=== PATIENT | male | born 1935 | race Caucasian/White ===

== ENCOUNTER → 2017-07-05 | Outpatient (CLI) | payer OTHER ==
[~2017-07-05] MED LIST: ASPI81EC; Antivert25 MG PO; Colace100 MG PO; HYDACE5 PO; OMEP20ER; PRAV20 PO; Percocet 5-3251 EACH PO; Zofran Odt4 MG SL; Zofran4 MG PO
== END ==
LOC: LAB SHORT 11:44 → PLD 11:44
DX: D48.5 Neoplasm of uncertain behavior of skin (principal)
CPT/HCPCS: 88305

== ENCOUNTER 2017-12-24 11:49 | Emergency (ER) | payer OTHER ==
[~2017-12-24] VITALS: Ht 180.3 cm; Wt 125.2 kg
[~2017-12-24 11:49] MED LIST changes: -Colace100 MG PO; -Percocet 5-3251 EACH PO
[2017-12-24] MEDS ORDERED: Percocet 5-3251 EACH PO (16:31)
[2017-12-24] MEDS ORDERED: Colace100 MG PO (16:31)
== END 2017-12-24 17:04 | disposition home or self-care (01) ==
LOC: ER 11:49
DX: S51.011A Laceration without foreign body of right elbow, initial encounter (principal); S00.03XA Contusion of scalp, initial encounter; Z79.899 Other long term (current) drug therapy; Z79.82 Long term (current) use of aspirin; K21.9 Gastro-esophageal reflux disease without esophagitis; W01.0XXA Fall on same level from slipping, tripping and stumbling without subsequent striking against object, initial encounter
CPT/HCPCS: 70450; 73030; 73502; 73552; 90714; 96372; 99284-25

== ENCOUNTER 2020-03-09 21:38 | Inpatient (IN) | payer MEDICARE, OTHER ==
[~2020-03-09] VITALS: Ht 180.3 cm; Wt 72.6 kg
[~2020-03-09 21:38] MED LIST changes: +Colace100 MG PO; +Percocet 5-3251 EACH PO
[2020-03-09] MEDS ORDERED: MINO50 (21:50)
[2020-03-09 22:05] LABS: BASOPHILS ABSOLUTE AUTO 0.22 K/mm3 (0.00-0.23); BASOPHILS PERCENT AUTO 2 % (0-2); EOSINOPHILS ABSOLUTE AUTO 0.31 K/mm3 (0.00-0.68); EOSINOPHILS PERCENT AUTO 3 % (0-6); Hematocrit 45.5 % (37.0-53.0); Hemoglobin 13.9 g/dL (13.5-17.5); IMMATURE GRAN ABSOLUTE AUTO 0.04 K/mm3 (0.00-0.10); IMMATURE GRAN PERCENT AUTO 0 % (0-1); LYMPHOCYTES ABSOLUTE AUTO 2.05 K/mm3 (0.84-5.20); LYMPHOCYTES PERCENT AUTO 21 % (21-46); MONOCYTES ABSOLUTE AUTO 1.08 K/mm3 (0.16-1.47); MONOCYTES PERCENT AUTO 11 % (4-13); Mean Corpuscular HGB 27.9 pg (26.0-34.0); Mean Corpuscular HGB Conc 30.5 g/dL (31.5-36.5); Mean Corpuscular Volume 91 fL (80-100); Mean Platelet Volume 11.8 fL (9.1-12.4); NEUTROPHILS ABSOLUTE AUTO 5.86 K/mm3 (1.96-9.15); NEUTROPHILS PERCENT AUTO 61 % (41-73); Platelet Count 220 K/mm3 (150-400); RDW Coefficient Variation 13.7 % (11.7-14.2); RDW Standard Deviation 46.3 fL (35.1-46.3); Red Blood Cell Count 4.99 M/mm3 (4.30-5.90); White Blood Cell Count 9.56 K/mm3 (4.00-11.30)
[2020-03-09 22:20] LABS: Alanine Aminotransfer (ALT/SGP 15 U/L (12-78); Albumin, Blood 3.2 g/dL (3.4-5.0); Albumin/Globulin Ratio 0.9 (0.8-1.8); Alk Phos 121 U/L (50-136); Anion Gap 5 mmol/L (6-16); Aspartate Aminotrans (AST/SGOT 16 U/L (12-37); Bilirubin, Total 0.5 mg/dL (0.1-1.0); Blood Urea Nitrogen 59 mg/dL (8-24); Bun/Creatinine Ratio 27.6 (12.0-20.0); CO2, Blood 25 mmol/L (21-32); Calcium, Blood 8.4 mg/dL (8.5-10.1); Chloride, Blood 108 mmol/L (98-108); Creatinine, Blood 2.14 mg/dL (0.60-1.20); Globulin, Blood 3.4 g/dL (2.2-4.0); Glomerular Filtration Rate 31 (60-); Glucose, Blood 133 mg/dL (70-99); Potassium, Blood 5.4 mmol/L (3.5-5.5); Sodium, Blood 138 mmol/L (136-145); Total Protein, Blood 6.6 g/dL (6.4-8.2); Troponin I <0.015 ng/mL (0.000-0.040)
[2020-03-10 02:22] LABS: Source, Urine Clean Catch
[2020-03-10 02:28] LABS: Bilirubin, Urine Neg (Neg); Blood, Urine 1+ (Neg); Glucose Qualitative, Urine Neg (Neg); Ketones, Urine Neg (Neg); Leukocyte Esterase, Urine Neg (Neg); Nitrite, Urine Neg (Neg); Protein, Urine 2+ (Neg); Specific Gravity, Urine 1.015 (1.003-1.022); Urobilinogen, Urine NORM (Normal)
[2020-03-10 02:29] LABS: Appearance, Urine Clear (Clear); Color, Urine Yellow (P-Yellow)
[2020-03-10 02:34] LABS: Bacteria Few /hpf; Red Blood Cells, Urine 0-2 /hpf (0-2); White Blood Cells, Urine 0-2 /hpf (0-5)
[2020-03-10 02:35] LABS: Squamous Epithelial Cells Few /hpf (Few)
[2020-03-10 04:49] LABS: Mean Corpuscular HGB 27.8 pg (26.0-34.0); Mean Corpuscular HGB Conc 30.8 g/dL (31.5-36.5); Mean Corpuscular Volume 91 fL (80-100); Mean Platelet Volume 11.7 fL (9.1-12.4); Platelet Count 192 K/mm3 (150-400); RDW Coefficient Variation 13.4 % (11.7-14.2); RDW Standard Deviation 45.2 fL (35.1-46.3); Red Blood Cell Count 4.31 M/mm3 (4.30-5.90)
[2020-03-10 05:24] LABS: Bun/Creatinine Ratio 28.9 (12.0-20.0); Calcium, Blood 7.7 mg/dL (8.5-10.1); Creatinine, Blood 1.97 mg/dL (0.60-1.20); Free Thyroxine 0.87 ng/dL (0.70-1.60); Potassium, Blood 4.9 mmol/L (3.5-5.5); Thyroid Stimulating Hormone 3.23 uIU/mL (0.360-4.800)
--- NOTE | 2020-03-10 05:52 | NUR ---
0130 Pt was received via stretcher to room 343. Pt is alert oriented and cooperative. Admission was completed. Pt given snack of 1/2 sandwich. Pt declines needing to void. Paul feet are cool. Pt has skin condition on face scabs and dry skin that he takes minocycline for. Pt with lights off resting.
--- NOTE | 2020-03-10 06:03 | NUR ---
Rn summary: Patient has been able to rest. He did void dk yellow urine, UA was sent to lab. Pt needs assist to turn in bed. He is here due to increased weakness. Pt has not been OOB for us. Pt is receiving IV fluids. Call light is in reach. Will continue to monitor.
--- NOTE | 2020-03-10 11:58 | NUR ---
PT INCONT XLRG SOFT DRK BRN STOOL. STATE DIZZINESS/LIGHTHEADEDNESS WHEN ATTEMPT TO GET OOB. DR MOREL NOTIFIED, ORDER ORTHO VS. LYING 87/50, SITTING UP 77/46. DR MOREL ORDER TO INCREASE NS RATE TO 150 ML/HR. WILL MX.
[2020-03-10 14:10] LABS: Hematocrit 32.1 % (37.0-53.0); Hemoglobin 9.7 g/dL (13.5-17.5)
--- NOTE | 2020-03-10 15:53 | NUR ---
PT CONTINUES INCONT OF LOOSE DRK STOOLS, LAST REDDIOSH/PURPLE, APPARENT BLOOD. DR MOREL NOTIFIED, ORDER H&H, LOWER THAN THIS AM @ 9.7/32.1, DR MOREL NOTIFIED. PT STATE CONTINUING STOMACH UPSET, GAVE PRILOSEC & TUMS THIS AM W/O RELIEF, DR MOREL ORDER MAALOX XTRA STRENGTH, PT STATE RELIEF @ THIS TIME.
--- NOTE | 2020-03-10 17:02 | NUR ---
BP 82/67, HR 86. PT STATE NO DIZZINESS/LIGHTHEADEDNESS @ REST. DR MOREL NOTIFIED ORDER NS 500ML BOLUS & STAT H&H. GROUNDS PERSON NOTIFIED.
--- NOTE | 2020-03-10 17:33 | NUR ---
DR MOREL UP TO SEE PT/FAMILY MEMBER, REVIEW RESULTS OF LABS, VS, TX'S. ORDER GI CONSULT w DR PHELPS, TRANSFER TO PCU, 1 UNIT PRBC. WIND TUNNEL MECHANIC NOTIFY SUPVR & PCU. PT IS PLEASANT/COOPERATIVE, STATE NO ABD PAIN @ THIS TIME. WIND TUNNEL MECHANIC STATE PT WILL TRANSFER TO PCU 13, WILL CALL TO GIVE REPORT. PT, DAUGHTER NOTIFIED.
[2020-03-10 17:39] LABS: Hematocrit 29.1 % (37.0-53.0); Hemoglobin 8.9 g/dL (13.5-17.5)
--- NOTE | 2020-03-10 18:13 | NUR ---
REPORT TO CHIEF METER READERKAREN BUCHANAN. DAUGHTER WILL NOTIFY FAMILY OF CHANGES/TRANSFER.
--- NOTE | 2020-03-10 20:20 | NUR ---
PT UPDATE GI PROVBIDER TO ROOM TO ASESS PT. PT REMAINS HYPOTENSIVE, 500ML BOLUS STARTED PER GI. BLOOD SLIP SENT TO START 1 UNIT PRBC'S. NEW IV ACCESS OBTAINED. PER GI START ON PROTONIX GTT. PT TO BR TRANSFERED TO ICU STATUS. BEDSIDE REPORT TO BE GIVEN IN ICU TO CANDICE JONES ONCE BLOOD TRANSFUSION HAS STARTED.
[2020-03-10 21:23] LABS: Stool Occult Blood Guaiac 1 Pos (Neg)
--- NOTE | 2020-03-10 21:31 | NUR ---
PT UP TO ICU 8 FROM PCU 13. PT AWAKE. LUNG SOUNDS CLEAR. SPO2 >90%. IN SR. SBP 120S, HR 70-80S. HYPOACTIVE BT. RECEIVING BOLUS OF 500MLS AND A UNIT OF BLOOD. SBPS PRIOR TO ICU ADMISSION HAD BEEN SOFT IN THE 70-80S. RECEIVED REPORT FROM KAREN CARIAS AND DR PHELPS. PLAN IS TO SCOPE PT TO FIND BLEED. WILL CONTINUE TO MONITOR
--- NOTE | 2020-03-10 22:25 | NUR ---
03/10/20 2225 Sonja Larson See Anesthesia record. CASE IN ICU #8.
--- NOTE | 2020-03-10 22:27 | NUR ---
PT BEING PREPPED FOR SCOPE BY SURG TEAM
[2020-03-10 23:33] LABS: Hematocrit 29.5 % (37.0-53.0); Hemoglobin 9.2 g/dL (13.5-17.5)
[2020-03-11 06:02] LABS: Hematocrit 26.4 % (37.0-53.0); Hemoglobin 8.3 g/dL (13.5-17.5)
[2020-03-11 06:17] LABS: Bun/Creatinine Ratio 36.2 (12.0-20.0); Calcium, Blood 7.5 mg/dL (8.5-10.1); Creatinine, Blood 2.1 mg/dL (0.60-1.20); Potassium, Blood 5.6 mmol/L (3.5-5.5)
--- NOTE | 2020-03-11 06:38 | NUR ---
SHIFT SUMMARY: EGD DONE. DUODENAL ULCER FOUND AND CAUTERIZED. IS ON RA. SBP IN THE 90S. HAD ONE BLACK/MAROON STOOL EARLIER IN SHIFT. NOTHING SINCE. VOIDS IN URINAL ON OWN. ON PROTONIX GTT. HGB THIS AM 8.3. NO S/S OF BLEEDING AT THIS TIME. WILL PASS REPORT TO ONCOMING SHIFT.
--- NOTE | 2020-03-11 07:56 | NUR ---
SPOKE WITH DR. MOREL; UPDATED ON PATIENT STATUS. INFORMED THAT PATIENT WEARS BIPAP AT HOME AT HS. INFORMED THAT BPS SOFT DURING THE NIGHT WITH SBP 80S TO 90S. INFORMED THAT PATIENT HAD NO SIGNS OF ACTIVE BLEEDING ON ACID POLYMERIZATION OPERATOR PER ACID POLYMERIZATION OPERATOR RN. INFORMED THAT PATIENT NPO AT THIS TIME. ORDERS RECEIVED.
--- NOTE | 2020-03-11 08:20 | NUR ---
INITIAL ASSESSMENT PATIENT RESTING QUIETLY IN BED, WATCHING TV, UPON ENTERING ROOM. PATIENT ALERT AND ORIENTED X 4, AFEBRILE. PATIENT SLOW TO RESPOND. PATIENT HAS CHRONIC RIGHT SIDED WEAKNESS. HX OF R ROTATOR CUFF SURGERY PER DAUGHTER. R HAND SLIGHTLY CONTRACTED. PATIENT DENIES PAIN. PATIENT SATTING 90% AND GREATER ON RA. LUNGS CLEAR THROUGHOUT. PATIENT WEARS BIPAP AT HOME AT HS. PATIENT IN SR WITH PVCS. HR 70S TO 80S. SBP LOW 100S. RADIAL PULSES AND BILAT FOOT PULSES FAINT IN STRENGTH. TRACE EDEMA NOTED TO ANKLES AND FEET. SCDS IN PLACE. ABDOMEN MILDLY DISTENDED, SOFT, WITH HYPERACTIVE BS NOTED. NO SIGNS OF ACTIVE BLEEDING NOTED. WNL. PATIENT USES URINAL INDEPENDENTLY. PATIENT HAS SCABS NOTED ON FACE AND UPPER TORSO. SCATTERED BRUISES NOTED. SKIN PALE/ COOL/ DRY. PROTONIX INFUSING AT 10 MLS/ HOUR, LR INFUSING AT 125 MLS/ HOUR, NS TKO. BED LOW, CALL LIGHT IN REACH. WILL CONTINUE TO MONITOR PATIENT FREQUENTLY THROUGHOUT SHIFT.
--- NOTE | 2020-03-11 11:40 | NUR ---
SPOKE WITH DR. PHELPS AND ALSO STATED OKAY TO PLACE ON CLEAR LIQUID DIET AND ADVANCE TOLERATED.
--- NOTE | 2020-03-11 12:00 | NUR ---
PATIENT EATING LUNCH IN BED. PATIENT AFEBRILE. PATIENT HAS NO COMPLAINTS OF PAIN. PATIENT REMAINS SATTING 90% AND GREATER ON RA. PATIENT HR 60S TO 70S. SBP 90S TO 1-TEENS. SBP DECREASED TO 70S WHEN PATIENT UP TO CHAIR WITH PHYSICAL THERAPY. PATIENT FELT LIGHT HEADED. PATIENT REMAINS VERY WEAK. NO OTHER ACUTE CHANGES TO NOTE ON AT THIS TIME. WILL CONTINUE TO MONITOR.
[2020-03-11 13:27] LABS: Hematocrit 25.6 % (37.0-53.0); Hemoglobin 8.2 g/dL (13.5-17.5)
[2020-03-11 14:12] LABS: Bun/Creatinine Ratio 38.4 (12.0-20.0); Calcium, Blood 7.6 mg/dL (8.5-10.1); Creatinine, Blood 1.9 mg/dL (0.60-1.20); Potassium, Blood 4.8 mmol/L (3.5-5.5)
--- NOTE | 2020-03-11 16:00 | NUR ---
PATIENT REMAINS AFEBRILE. NO COMPLAINTS OF PAIN. VSS. NO ACUTE CHANGES TO NOTE ON AT THIS TIME. WILL CONTINUE TO MONITOR.
--- NOTE | 2020-03-11 19:38 | NUR ---
SHIFT SUMMARY PATIENT REMAINED ALERT AND ORIENTED X 4, AFEBRILE. PATIENT COMPLAINED OF HEART BURN TOWARD END OF SHIFT AND WAS GIVEN PRN MAALOX AND TUMS. PATIENT WEAK AND DIZZY WHEN PHYSICAL THERAPY WORKED WITH AND GOT TO CHAIR; SBP DECREASED DOWN TO 70S; PATIENT HAD TO LIE BACK IN BED FOR SEVERAL MINUTES BEFORE FEELING BETTER. PATIENT REMAINED SATTING 90% AND GREATER ON RA. PATIENT REMAINED IN ST WITH PVCS. HR 60S TO 90S. SBP MOSTLY 90S TO 1-TEENS. NO BM THIS SHIFT. PATIENT INCREASED TO SOFT/RENAL DIET THIS SHIFT; CONTINUE TO ADVANCE TOLERATED. PATIENT VOIDED 900 MLS OF URINE INTO BEDSIDE URINAL. NO CHANGE TO SKIN. PATIENT SHIFTING OWN HIPS IN BED. PROTONIX INFUSING AT 10 MLS/ HOUR, LR AT 125 MLS/ HOUR. BED LOW, CALL LIGHT IN REACH. REPORT HAS BEEN GIVEN TO ONCOMING FURNACE HAND NURSE.
--- NOTE | 2020-03-11 22:33 | NUR ---
UPDATE: PT HAVING EMESIS 300ML GREEN IN COLOR. PT HAD NEHEMIAS COLORED STOOL, WITH CLOTS NOTED. CHARGE NURSE SAPPHIRE CALLED , WHO IS GOING TO CONSULT SAUL HUFF ON THE CASE. ORDERS TO CHANGE PT TO ICU STATUS. STAT ORDER FOR H&H IN PLACE. THIS NURSE WILL BE TAKING OVER CARE OF SALVATORE.
[2020-03-11 22:56] LABS: Hematocrit 26.8 % (37.0-53.0); Hemoglobin 8.4 g/dL (13.5-17.5)
--- NOTE | 2020-03-11 23:05 | NUR ---
AT BEDSIDE, DISSCUSING ANGIOGRAM PROCEDURE.
--- NOTE | 2020-03-12 02:06 | NUR ---
PT'S BP SOFT. PT DENIES ANY NAUSEA/DIZZINESS AT THIS TIME. AWAITING FOR MANNEQUIN MOLD MAKER TO COME SAND CUTTING MACHINE OPERATOR PT FOR PROCEDURE.
--- NOTE | 2020-03-12 02:21 | NUR ---
WILDLIFE REFUGE SPECIALIST CAME TO PICKUP PT. LEFT ICU AT 0222
--- NOTE | 2020-03-12 04:27 | NUR ---
PT BACK FROM EXECUTIVE OFFICER SPECIAL WARFARE TEAM. PT IS ALERT AND ORIENTEDX3, ABLE TO ANSWER QUESTIONS. VSS. RIGHT SITE GROIN ACCESS IS FREE FROM ACTIVE BLEEDING OR HEMATOMA, DRESSING IS C/D/I. PT C/O UPSET STOMACH, MEDS GIVEN PER EMAR.
[2020-03-12 05:03] LABS: Hematocrit 27.7 % (37.0-53.0); Hemoglobin 8.7 g/dL (13.5-17.5); Mean Corpuscular HGB Conc 31.4 g/dL (31.5-36.5); Mean Corpuscular Volume 92 fL (80-100); Mean Platelet Volume 12.4 fL (9.1-12.4); Platelet Count 144 K/mm3 (150-400); RDW Coefficient Variation 14.4 % (11.7-14.2); RDW Standard Deviation 49.1 fL (35.1-46.3); White Blood Cell Count 12.05 K/mm3 (4.00-11.30)
[2020-03-12 05:24] LABS: Calcium, Blood 7.6 mg/dL (8.5-10.1); Creatinine, Blood 1.78 mg/dL (0.60-1.20); Potassium, Blood 4.9 mmol/L (3.5-5.5)
--- NOTE | 2020-03-12 06:18 | NUR ---
SHIFT SUMMARY: SEE PREVIOUS NOTES. PT REMAINS ALERT AND ORIENTEDX3. PT CONTINUES TO BR IN SINUS RYTHYM WITH PVC'S HR IN THE 80'S. PT WENT TO QUICK MIXER OPERATOR THIS SHIFT FOR AN ANGIOGRAM, PT RECEVIED COILS. RIGHT GROIN SITE IS FREE FROM HEMATOMA AND ACTIVE BLEEDING, DRESSING C/D/I. VITALS HAVE BEEN STABLE. PROTONIX DRIP RUNNING AND LR AT 125ML/HR. PT DENIES ANY NAUSEA/PAIN AT THIS TIME. PT HAS BEEN USING URINAL AT BEDSIDE INDEPENDENTLY.
--- NOTE | 2020-03-12 07:30 | NUR ---
Assumed care of pt at 0700. Bedside report recieved from Mara JONES. Pt A&O x 3. Answers questions. Follows commands. Verbalizes needs. Pt's main concern is that he did not sleep last night, as it was a busy night, and would like to continue sleeping this morning. Pt on room air. SpO2 90% or greater. Lungs clear t/o. SR per monitor. BP stable. Bed in lowest position. Call light in reach. Pt denies need at this time. Dr Bazan in to see pt. Discussed no additional orders for tracking H&H. Provider states he will enter orders.
--- NOTE | 2020-03-12 11:00 | NUR ---
Call placed to Dr Bazan as no new orders have been receivied. Provider gives verbal order for blood potassium level at 1300.
[2020-03-12 13:25] LABS: Hematocrit 25.5 % (37.0-53.0); Hemoglobin 8.1 g/dL (13.5-17.5)
--- NOTE | 2020-03-12 14:18 | NUR ---
Rectal tube has been inserted as pt is having liquid stools, dark black with some dark red. No bright red blood or clots noted.
--- NOTE | 2020-03-12 15:28 | NUR ---
Discussed H&H with provider. Plan to recheck at 1900. Notified provider that pt had large dark BM. Provider states he would like pt to remain ICU status until tomorrow morning.
--- NOTE | 2020-03-12 16:03 | NUR ---
Dr Cole in to see pt. Provider states pt to remain on protonix drip at this time. Provider also states that pt to remain on full liquid diet instead of advancing.
--- NOTE | 2020-03-12 18:52 | NUR ---
No acute changes t/o shift. Pt had large liquid bowel movement and now has a rectal tube that has drained approx 75 mL liquid stool. Pt ate small amount of full liquid dinner. Pt placed on 2 LPM NC as SpO2 drops to 87%-88% while pt is sleeping. Pt has home BiPAP at bedside, RT aware, however pt is refusing BiPAP and has signed a refusal. Per pt report, pt has not used it in over a year. WIll continue to closely monitor until care handoff and bedside report with oncoming RN.
--- NOTE | 2020-03-12 19:00 | NUR ---
ASSUMED CARE NOTE: ASSUMED CARE OF PT AT 1900, RECEVIED REPORT HUSSAIN JONES. PT IS ALERT AND ORIENTEDX3, ABLE TO COMMUNICATE NEEDS. PT WAS ON 2L OF O2 VIA NC, SPO2 98% , PT THEN PLACED ON RA. PT IS IN SINUS RYTHYM WITH HR IN THE 60-70'S. BP STABLE. RECTAL TUBE DRAINING TO GRAVITY, NEHEMIAS/DARK DRAINAGE NOTED. PT REPOSITIONED, WILL CONTINUE TO MONITOR.
[2020-03-12 19:44] LABS: Hematocrit 25.5 % (37.0-53.0)
[2020-03-13 03:53] LABS: Hematocrit 22.7 % (37.0-53.0); Hemoglobin 7.1 g/dL (13.5-17.5); Mean Corpuscular HGB 28.9 pg (26.0-34.0); Mean Corpuscular HGB Conc 31.3 g/dL (31.5-36.5); Mean Corpuscular Volume 92 fL (80-100); Mean Platelet Volume 12.5 fL (9.1-12.4); Platelet Count 138 K/mm3 (150-400); RDW Coefficient Variation 14.5 % (11.7-14.2); RDW Standard Deviation 48.7 fL (35.1-46.3); Red Blood Cell Count 2.46 M/mm3 (4.30-5.90); White Blood Cell Count 11.26 K/mm3 (4.00-11.30)
[2020-03-13 04:11] LABS: Bun/Creatinine Ratio 25.1 (12.0-20.0); Calcium, Blood 7.6 mg/dL (8.5-10.1); Creatinine, Blood 1.99 mg/dL (0.60-1.20); Potassium, Blood 5.3 mmol/L (3.5-5.5)
--- NOTE | 2020-03-13 05:42 | NUR ---
SHIFT SUMMARY: NO MAJOR CHANGES T/O SHIFT. PT CONTINUES TO BE ALERT AND ORIENTEDX3. PT HAS BEEN ON RA FOR THE MAJORITY OF THE SHIFT, NO DROP IN SPO2 NOTED. PT HAS BEEN IN SINUS RYTHYM WITH PVC'S WITH HR IN THE 60'S. BP HAVE BEEN SOFT, HOWEVER STABLE, PT HAS DENIED DIZZINESS. PT HAS DENIED NAUSEA T/O SHIFT. PT HAS BEEN USING URNIAL AT BEDSIDE INDEPENDENTLY. RECTAL TUBE HAD SCANT AMOUNT OF OUTPUT. WILL CONTINUE TO MONITOR PT UNTIL REPORT IS GIVEN TO ONCOMING SHIFT.
--- NOTE | 2020-03-13 07:12 | NUR ---
Assumed care of pt at 0700. Pt A&O x 4. Answers questions. Follows commands. Verbalizes needs. Lungs clear t/o. SpO2 90% or greater RA. SR per monitor. BP stable. Bed in lowest position. Call light in reach. Pt denies need at this time.
--- NOTE | 2020-03-13 07:58 | NUR ---
Dr Bazan in to see patient. Plan to transfuse 1 unit PRBCs.
[2020-03-13 13:36] LABS: Hematocrit 26.7 % (37.0-53.0); Hemoglobin 8.5 g/dL (13.5-17.5)
--- NOTE | 2020-03-13 15:27 | NUR ---
Discussed post transfusion H&H with Dr Bazan. Notified provider that pt's blood pressure has been low/normal with SBP in 90s, and DBP in 40s. Discussed that MAP has been high 50s to mid 60s. Discussed that pt's BP is 40s and 50s with rest; 60+ when awake. Provider states pt may be changed to PCU status and he would like H&H recheck at 1900.
--- NOTE | 2020-03-13 18:22 | NUR ---
Pt is now PCU status. Pt continues on protonix drip. Received 1 unit PRBCs, tolerated well. Pt worked with PT/OT to dangle on edge of bed. Pt unable to get OOB this shift. Pt on room air. SB-SR per monitor. Will continue to closely monitor until care handoff and bedside report with oncoming RN.
[2020-03-13 19:09] LABS: Hematocrit 26.7 % (37.0-53.0); Hemoglobin 8.5 g/dL (13.5-17.5)
[2020-03-14 03:52] LABS: Hematocrit 25.5 % (37.0-53.0); Hemoglobin 8.1 g/dL (13.5-17.5); Mean Corpuscular HGB Conc 31.8 g/dL (31.5-36.5); Mean Corpuscular Volume 91 fL (80-100); Mean Platelet Volume 12.5 fL (9.1-12.4); Platelet Count 141 K/mm3 (150-400); RDW Coefficient Variation 14.8 % (11.7-14.2); RDW Standard Deviation 49.5 fL (35.1-46.3); Red Blood Cell Count 2.79 M/mm3 (4.30-5.90); White Blood Cell Count 9.81 K/mm3 (4.00-11.30)
[2020-03-14 04:10] LABS: Calcium, Blood 7.9 mg/dL (8.5-10.1); Creatinine, Blood 1.92 mg/dL (0.60-1.20); Potassium, Blood 5.4 mmol/L (3.5-5.5)
--- NOTE | 2020-03-14 04:59 | NUR ---
PT SPO2 DROPPED INTO THE MID 80'S WHEN HE WAS SLEEPING. 2L OF 02 PLACED VIA NC, SPO2 95%
--- NOTE | 2020-03-14 06:25 | NUR ---
SHIFT SUMMARY: NO SIGNIFICANT CHANGES. PT CONTINUES TO BE ALERT AND ORIENTEDX3, ABLE TO COMMUNICATE NEEDS. PT HAS BEEN IN SINUS RYTHYM WITH HR IN THE 60'S-70'S. BP HAVE BEEN SOFT THIS SHIFT, HOWEVER STABLE. PT HAS DENIED NAUSEA T/O SHIFT. NO BM NOTED. PT HAS BEEN USING URINAL INDEPENDENTLY T/O SHIFT. PT HAS C/O OF WEAKNESS, UNABLE TO REPOSITION SELF IN BED, REQUIRES MODERATE AMOUNT OF ASSISTANCE. PT PLACED ON 2L OF 02 VIA NC WHILE PT SLEEPS. PROTONIX DRIP INFUSING. WILL CONTINUE TO MONITOR PT UNTIL REPORT IS GIVEN TO ONCOMING SHIFT.
--- NOTE | 2020-03-14 08:00 | NUR ---
DR. MOREL UPDATED ON PATIENT STATUS. INFORMED THAT PATIENT HAVING SOFT BPS.
--- NOTE | 2020-03-14 08:45 | NUR ---
INITIAL ASSESSMENT PATIENT SLEEPING SOUNLDY UPON ENTERING ROOM. PATIENT WAKES EASILY TO VERBAL STIMULI. PATIENT ALERT AND ORIENTED X 4, AFEBRILE. PATIENT HAS R SIDED WEAKNESS AND R CONTRACTED HAND, ALL OF WHICH HE STATES IS IS NORMAL. PATIENT DENIES PAIN. PATIENT SATTING 90% AND GREATER ON RA. PATIENT IN SR WITH PVCS, FIRST DEGREE HB NOTED. HR 50S TO 70S. SBP 90S TO LOW 100S. PULSES FAINT. TRACE EDEMA NOTED TO BLES AND RUE. PITTING EDEMA NOTED TO LUE. ABDOMEN MILDLY DISTENDED, SOFT, WITH NORMOACTIVE BS NOTED. LAST BM DOCUMENTED 2 DAYS AGO. PATIENT TOLERATING FULL LIQUID DIET WELL. WNL. SCABS NOTED TO FACE. SKIN COOL, PALE AND DRY. R PUBLIC EVENTS FACILITIES RENTAL MANAGER ACCESS SITE WNL- NO BLEEDING, BRUISING, OR HEMATOMA NOTED. RIGHT TIGHT ON L RING FINGER. TRIED TO APPLY LUBE TO TAKE RING OFF. CAP REFILL REMAINS LESS THAN 3. NO SIGNS OF DECREASED PERFUSION TO FINGER. ARM AND HAND ELEVATED TO SEE IF CAN DECREASE SWELLING TO GET RING OFF. SCDS IN PLACE. PROTONIX INFUSING AT 10 MLS/ HOUR. BED LOW, CALL LIGHT IN REACH. WILL CONTINUE TO MONITOR.
--- NOTE | 2020-03-14 12:20 | NUR ---
PATIENT WATCHING TV AND EATING LUNCH IN BED. NO COMPLAINTS. AFEBRILE. SBP REMAIN BETWEEN SOFT AND STABLE. SBPS LOW 90S TO 1-TEENS. HR 50S TO 80S. NO OTHER ACUTE CHANGES TO NOTE ON AT THIS TIME. WILL CONTINUE TO MONITOR.
[2020-03-14 13:21] LABS: Hematocrit 26.3 % (37.0-53.0); Hemoglobin 8.3 g/dL (13.5-17.5)
--- NOTE | 2020-03-14 15:03 | NUR ---
SHIFT SUMMARY PATIENT REMAINED ALERT AND ORIENTED X 4, AFEBRILE. PATIENT WORKED WITH PT/ OT THIS SHIFT. PATIENT REMAINS WEAK AND NEEDS 1 PERSON ASSIST WITH 4 WHEEL WALKER. PATIENT HAD NO COMPLAINTS OF PAIN. PATIENT REMAINED SATTING 90% AND GREATER ON RA. PATIENT REMAINED IN SR WITH PVCS WITH FIRST DEGREE BLOCK. HR 50S TO 70S. SBP LOW 90S TO 1-TEENS. 1+ EDEMA IS NOW TRACE EDEMA TO LEFT ARM AND HAND AFTER ELEVATING. RING REMAINS IN PLACE ON L RING FINGER. INFORMED ASSUMING MEDICAL NURSE, MACK, THAT RING REMAINS IN PLACE, BUT THAT CAP REFILL REMAINS LESS THAN 3 SECONDS WITH NO SIGNS OF DECREASED PERFUSION. PATIENT HAD NO BM THIS SHIFT. PATIENT TOLERATING SOFT FOODS WELL. PATIENT HAD ADEQUATE URINE OUTPUT. IVS FLUSHED AND SALINE LOCKED. PATIENT HAS NO COMPLAINTS AT THIS TIME. PATIENT'S SON CALLED, BUT DID NOT ANSWER AND VOICEMAIL BOX FULL. PATIENT WILL BE TRANSFERRING TO MEDICAL FLOOR, ROOM 363 SHORTLY.
--- NOTE | 2020-03-14 19:39 | NUR ---
SHIFT SUMMARY: PATIENT XFR FROM ICU08 THIS SHIFT. PT A&O; CALM AND COOPERATIVE WITH CARE. NO C/O PAIN SINCE ARRIVAL ON MEDICAL FLOOR. NO B/M SINCE ARRIVAL ON MEDICAL. H&H LOW; PATIENT PALE/WEAL; PT & OT FOLLOWING. HoB ELEVATED @ 30 DEGREES R/T GERD. GI (DR PHELPS) FOLLOWING. REPORT GIVEN TO ONCOMING RN.
--- NOTE | 2020-03-15 04:36 | NUR ---
ASSUMED CARE OF PT AT 1900. PT IS A/OX4, BUT SLOW TO RESPOND. PT HAS R SIDED WEAKNESS AND R HAND IS CONTRACTED. PT HAS NO KNEW COMPLAINTS BUT SAYS HE STILL DOESNT FEEL 100% BETTER. PT IS 1P FWW TO BATHROOM. PT HAS BANDAGE ON L CONGREGATIONAL, PT STATES THIS WAS FROM A FALL. PT R GROIN SITE IS FREE OF BRUISING AND REDNESS. NO ACUTE EVENTS DURING THE NIGHT. PT SLEPT T/O THE NIGHT. CALL LIGHT IN REACH, BED IN LOWEST POSTION.
[2020-03-15 04:38] LABS: Hematocrit 26.3 % (37.0-53.0); Hemoglobin 8.3 g/dL (13.5-17.5); Mean Corpuscular HGB Conc 31.6 g/dL (31.5-36.5); Mean Corpuscular Volume 92 fL (80-100); Mean Platelet Volume 12.6 fL (9.1-12.4); Platelet Count 169 K/mm3 (150-400); RDW Coefficient Variation 14.9 % (11.7-14.2); RDW Standard Deviation 49.8 fL (35.1-46.3); Red Blood Cell Count 2.86 M/mm3 (4.30-5.90); White Blood Cell Count 10.48 K/mm3 (4.00-11.30)
[2020-03-15 04:55] LABS: Bun/Creatinine Ratio 22.7 (12.0-20.0); Calcium, Blood 7.8 mg/dL (8.5-10.1); Creatinine, Blood 1.98 mg/dL (0.60-1.20); Potassium, Blood 5.1 mmol/L (3.5-5.5)
--- NOTE | 2020-03-15 16:15 | NUR ---
SHIFT SUMMARY PT AOX4; VERY CALM AND COOPERATIVE. R HAND CONTRACTED TO CHEST AND LIMITED MOBILITY. PT STATED N/T ON HIS RLL. PT ON RA. NO C/O SOB, CP, N&V, PAIN. PT GROIN SITE IS C/D/I. PT CONCERNED ABOUT HIS URINARY FREQUENCY; DISCUSSED WITH DR ARGUELLO ABOUT THE PT CONCERN; NO NEW ORDERS AT THIS TIME. BED IS IN THE LOWEST POSITION; CALL LIGHTS WITHIN REACH AND WILL CONT MONITOR.
--- NOTE | 2020-03-16 04:26 | NUR ---
SHIFT SUMMARY ASSUMED CARE OF PT AT 1900. PT IS A/OX4. HEART SOUND REGULAR, LUNG SOUNDS CLEAR, PT DENIES CP/SOB. PT WAS INCONTIENT OF STOOL AND URINE THIS PM. URINE CLEAR AND YELLOW, STOOL FREE OF BLOOD. PT WAS ABLE TO STAND WITH WALKER FOR HIS BED TO BE CHANGED. PT HAD NO NEW COMPLAINTS BUT STILL DOESNT FEEL 100%. NO ACUTE EVENTS DURING THE NIGHT. CALL LIGHT IN REACH, BED IN LOWEST POSITION.
--- NOTE | 2020-03-16 17:26 | NUR ---
SHIFT SUMMARY PT AOX4; CALLS APPROPROATELY; DAUGHTER AT BEDSIDE. RECEIVED AN ORDER FOR THIS PT BY THE DR TO GET HIM UP IN A CHAIR EVERY MEALS. PT USED THE BSC TODAY AND SAT DOWN IN A CHAIR WITH 2P ASSIST. NO C/O PAIN, N&V, SOB OR CP. NO OTHER ACUTE CHANGES AT THIS SHIFT. BED IS IN THE LOWEST POSITION; CALL LIGHTS WITHIN REACH AND WILL CONT MONITOR.
--- NOTE | 2020-03-17 04:18 | NUR ---
SHIFT SUMMARY ASSUMED CARE OF PT AT 1900. PT IS A/OX4. PT STATED THAT HE WAS FEELING BETTER TODAY. HEART SOUNDS REGULAR, LUNG SOUNDS DIMINISHED AT THE BASES. PT WAS CONTINENT USING THE URINAL DURING THE NIGHT. PT SLEPT T/O THE NIGHT. CALL LIGHT IN REACH, BED IN LOWEST POSITON.
[2020-03-17 05:04] LABS: Hematocrit 25.6 % (37.0-53.0); Hemoglobin 8.2 g/dL (13.5-17.5); Mean Corpuscular HGB 29.3 pg (26.0-34.0); Mean Corpuscular Volume 91 fL (80-100); Mean Platelet Volume 12.2 fL (9.1-12.4); Platelet Count 218 K/mm3 (150-400); RDW Coefficient Variation 15.3 % (11.7-14.2); RDW Standard Deviation 50.3 fL (35.1-46.3); White Blood Cell Count 9.94 K/mm3 (4.00-11.30)
[2020-03-17 05:26] LABS: Albumin, Blood 2.3 g/dL (3.4-5.0); Anion Gap 4 mmol/L (6-16); Blood Urea Nitrogen 38 mg/dL (8-24); Bun/Creatinine Ratio 20.1 (12.0-20.0); CO2, Blood 28 mmol/L (21-32); Chloride, Blood 106 mmol/L (98-108); Creatinine, Blood 1.89 mg/dL (0.60-1.20); Glomerular Filtration Rate 36 (60-); Glucose, Blood 97 mg/dL (70-99); Phosphorus, Blood 2.5 mg/dL (2.5-4.9); Potassium, Blood 4.9 mmol/L (3.5-5.5); Sodium, Blood 138 mmol/L (136-145)
--- NOTE | 2020-03-17 07:48 | NUR ---
03/17/20 0655 pt using urininal this am will come back
[2020-03-17] MEDS ORDERED: MIRALAX17 GM PO (11:59)
[2020-03-17] MEDS ORDERED: TAMS.4ER PO (11:59)
[2020-03-17] MEDS ORDERED: ACET325 PO (11:59)
[2020-03-17] MEDS ORDERED: PANT40 PO (11:59)
--- NOTE | 2020-03-17 15:08 | NUR ---
DISCHARGE DISCHARGE MEDICATIONS AND INSTRUCTIONS EXPLAINED TO JESUSN AND PATIENT'S SON. THEY STATED UNDERSTANDING. FOLLOW UP WITH PCP SCHEDULED. IV'S REMOVED WITHOUT DIFFICULTY. BELONGINGS WITH PATIENT. PATIENT TRANSFERED TO PRIVATE VEHICLE VIA WHEELCHAIR.
== END 2020-03-17 14:35 | disposition home or self-care (01) | DRG 356 ==
LOC: ER 21:38 → ICUE 23:42 → MEDS 23:42 → PCU 03-10 18:13 → ICUE 03-10 20:40 → MEDS 03-14 15:54 → ENPENDDIS 03-17 10:33 → MEDS 03-17 14:35
PROVIDERS: Emergency Medicine; Internal Medicine; Internal Medicine Gastroenterology; ADMIT Internal Medicine
PROC: 0D598ZZ Destruction of Duodenum, Via Natural or Artificial Opening Endoscopic (ICD-10-PCS; principal; 2020-03-12)
PROC: 04L53DZ Occlusion of Superior Mesenteric Artery with Intraluminal Device, Percutaneous Approach (ICD-10-PCS; 2020-03-12)
PROC: 3E0G8GC Introduction of Other Therapeutic Substance into Upper GI, Via Natural or Artificial Opening Endoscopic (ICD-10-PCS; 2020-03-12)
PROC: 30233N1 Transfusion of Nonautologous Red Blood Cells into Peripheral Vein, Percutaneous Approach (ICD-10-PCS; 2020-03-12)
PROC: B4151ZZ Fluoroscopy of Inferior Mesenteric Artery using Low Osmolar Contrast (ICD-10-PCS; 2020-03-12)
PROC: B4141ZZ Fluoroscopy of Superior Mesenteric Artery using Low Osmolar Contrast (ICD-10-PCS; 2020-03-12)
DX: K26.4 Chronic or unspecified duodenal ulcer with hemorrhage (principal); R57.8 Other shock; N25.81 Secondary hyperparathyroidism of renal origin; N17.9 Acute kidney failure, unspecified; D62 Acute posthemorrhagic anemia; K21.9 Gastro-esophageal reflux disease without esophagitis; E86.0 Dehydration; N18.30 Chronic kidney disease, stage 3 unspecified; G47.33 Obstructive sleep apnea (adult) (pediatric); E78.5 Hyperlipidemia, unspecified; E06.9 Thyroiditis, unspecified; Z79.82 Long term (current) use of aspirin; I95.1 Orthostatic hypotension; K22.11 Ulcer of esophagus with bleeding; E87.5 Hyperkalemia; K59.00 Constipation, unspecified; N40.1 Benign prostatic hyperplasia with lower urinary tract symptoms; R33.8 Other retention of urine; N13.9 Obstructive and reflux uropathy, unspecified
CPT/HCPCS: 36415; 36430; 37244; 71046; 75726; 75774; 76770; 80048; 80053; 80069; 81001; 82272; 84439; 84443; 84484; 85014; 85018; 85025; 85027; 86850; 86900; 86901; 86923; 93005; 93010; 96360; 97110; 97116; 97161; 97166; 97535; 99152; 99153; 99285-25; A9270-GY; C1760; C1769; C1887; C1894; C9113; J0171; J1430; J1644; J2001; J2250; J2405; J2704; J3010; J7030; J7120; P9016; Q2038; Q9967; U0003

== ENCOUNTER 2020-06-12 12:15 | Day surgery (SDC) | payer OTHER ==
[~2020-06-12] VITALS: Ht 180.3 cm; Wt 74.8 kg
[~2020-06-12 12:15] MED LIST changes: +8 HOUR ACETAMI650 MG PO; +ACET325 PO; +CENTRUM SILVER1 EAC2 PO; +COENZYME Q10100 MG PO; +MINO50; +MIRALAX17 GM PO; +PANT40 PO; +TAMS.4ER PO; +TAMSULOSIN HCL0.4 MG PO
--- NOTE | 2020-06-12 12:59 | NUR ---
06/12/20 1259 VILLA JHAVERI ONE ATTEMPT IN RW BY MELLY MISSED ONE SUCCESSFUL IN RAC BY MELLY PT TOW
== END 2020-06-12 15:00 | disposition home or self-care (01) ==
LOC: ORSCSDS 12:15
PROVIDERS: Internal Medicine Gastroenterology
PROC: 0DJ08ZZ Inspection of Upper Intestinal Tract, Via Natural or Artificial Opening Endoscopic (ICD-10-PCS; principal; 2020-06-12 13:45)
DX: D50.9 Iron deficiency anemia, unspecified (principal); K26.0 Acute duodenal ulcer with hemorrhage; I10 Essential (primary) hypertension; Z86.73 Personal history of transient ischemic attack (TIA), and cerebral infarction without residual deficits; K21.9 Gastro-esophageal reflux disease without esophagitis; Z79.899 Other long term (current) drug therapy
CPT/HCPCS: J2704; J7120

== ENCOUNTER 2020-07-28 00:22 | Inpatient (IN) | payer MEDICARE, OTHER ==
[~2020-07-28] VITALS: Ht 180.3 cm; Wt 76.2 kg
[2020-07-28 00:50] LABS: Calcium, Ionized (POC) 1.26 mmol/L (1.10-1.46); Chloride (POC) 106 mmol/L (98-108); Creatinine (POC) 2.3 mg/dL (0.8-1.3); Glucose (ISTAT POC) 127 mg/dL (70-99); Hemoglobin (POC) 14.6 g/dL (13.5-17.5); Potassium (POC) 4.2 mmol/L (3.5-5.5); Sodium (POC) 139 mmol/L (135-148); Total CO2 (POC) 26 mmol/L (21-32)
--- NOTE | 2020-07-28 06:50 | NUR ---
SUMMARY PATIENT ARRIVED TO ICU 14 FROM PET FEEDER IN BED. LAYING FLAT DUE TO SHEATH IN PLACE TO RIGHT GROIN. GROIN SITE SOFT NO OOZING SEEN. PATIENT AWAKE A&O X3 SLIGHTLY SLOW TO ANSWER QUESTIONS AT TIMES. DOING WELL WITH FOLLOWING NEED TO LAY FLAT DUE TO GROIN SHEATH. WAITING FOR PTT TO COME DOWN SO WE CAN PULL SHEATH. BOTH DOCTOR HARVEY AND DOCTOR MARIA TERESA IN TO SEE PATIENT, AND PLACING ORDERS. PATIENT VERBALIZED NO FURTHER DISCOMFORT AFTER STENT PLACED TO LEFT FIRST DIAG VESSEL. MONITORING CLOSELY FOR BLEEDING DUE TO RECENT GI BLEED.
[2020-07-28 07:24] LABS: Hematocrit 37.9 % (37.0-53.0); Hemoglobin 11.6 g/dL (13.5-17.5)
[2020-07-28 07:40] LABS: Source, Urine Catheter
[2020-07-28 07:47] LABS: Bilirubin, Urine Neg (Neg); Blood, Urine 5+ (Neg); Glucose Qualitative, Urine Neg (Neg); Ketones, Urine Neg (Neg); Leukocyte Esterase, Urine Neg (Neg); Nitrite, Urine Neg (Neg); Protein, Urine 2+ (Neg); Urobilinogen, Urine NORM (Normal)
[2020-07-28 07:56] LABS: Appearance, Urine Clear (Clear); Color, Urine Yellow (P-Yellow)
[2020-07-28 07:58] LABS: Bacteria Few /hpf; Red Blood Cells, Urine 50-100 /hpf (0-2); Squamous Epithelial Cells Rare /hpf (Few); White Blood Cells, Urine 0-2 /hpf (0-5)
--- NOTE | 2020-07-28 09:40 | NUR ---
PT HAVING MORE FREQUENT ECTROPY AND REPROFUSION BEATS. PT REMAINS ASYMPTOMATIC. NOTED 12 BEAT RUN OF WHAT APPEARS TO BE AFIB WITH RVR AND BBB- RATE 150'S. SEE ECG STRIP. DR. GABRIEL NOTIFIED. METOPROLOL AND LABS ORDERED.
[2020-07-28 12:24] LABS: Albumin, Blood 2.4 g/dL (3.4-5.0); Albumin/Globulin Ratio 0.8 (0.8-1.8); Bilirubin, Total 0.2 mg/dL (0.1-1.0); Bun/Creatinine Ratio 17.4 (12.0-20.0); Calcium, Blood 8.4 mg/dL (8.5-10.1); Creatinine, Blood 1.9 mg/dL (0.60-1.20); Globulin, Blood 3.2 g/dL (2.2-4.0); Magnesium, Blood 1.8 mg/dL (1.6-2.4); Potassium, Blood 4.4 mmol/L (3.5-5.5); Total Protein, Blood 5.6 g/dL (6.4-8.2)
[2020-07-28 12:29] LABS: Troponin I 77.9 ng/mL (0.000-0.040)
--- NOTE | 2020-07-28 12:44 | NUR ---
AT 0800 THIS MORNING, PT IS ALERT AND OREINTED. PT DENIES GENERAL PAIN AND CHEST MAGGY AT THIS TIME. PT ORAL MUCOSA APPEARS DRY WITH A SCAB PRESENT ON HIS RIGHT UPPER LIP. LUNG SOUNDS ARE CLEAR BILATERALLY. NO ABNORMAL HEART SOUNDS NOTED. 1ST DEGREE HB NOTED ON MONITOR. FEMORAL ARTERIAL CATH HAS REMAINED IN PLACE THIS MORNING DUE TO A CRITICAL LAB VALUE PTT OF >139. RADIAL AND PEDAL PULSES ARE STRONG BILATERALLY WITH CAP REFILL <3 SECONDS. URINARY CATH IS IN PLACE AND PATENT PRODUCING CLEAR/PINK TINGED URINE AT THIS TIME.
--- NOTE | 2020-07-28 15:30 | NUR ---
RIGHT FEMORAL SHEATH SUCCESSFULLY REMOVED AND BAILEY PATCH PLACED. MANUAL PRESSURE HELD X 25 MIN. MILD HEMATOMA AT ARTEREOTOMY SITE<3CM. DIME SIZED AMOUNT OF BLOOD TO BAILEY PATCH. SEE CATH SITE MANAGEMENT FOR FREQUENT GROIN SITE ASSESSMENT.
--- NOTE | 2020-07-28 17:35 | NUR ---
PT REMAINS A&OX4. OCCASIONAL CONFUSION REGARDING USE OF THE CALL LIGHT VS. PHONE. HE GETS THE TWO MIXED UP AND REQUIRES FREQUENT REMINDERS AND LOTS OF REMINDING OF HOW TO USE. ECG SHOWS SR WITH FIRST DEGREE AV BLOCK. RARE ECTOPY SINCE MAGNESIUM 1 GM IVPB GIVEN. PT DENIES CP OR SOB. RIGHT FEMORAL SITE WITH BAILEY PATCH. <3 CM HEMATOMA. SITE NONTENDER.
--- NOTE | 2020-07-28 19:55 | NUR ---
PT IS ALERT AND ORIENTED X3. PT DENIES ANY CHEST PAIN, SOB OR HEADACHE. R GROIN SITE - BAILEY DRESSING IN PLACE, SITE SOFT TO PALPATION - PT DENIES ANY COMPLAINTS OF PAIN AT GROIN SITE. PT REPORTS A HISTORY OF N/T TO R HAND AND FOOT - REPORTS DIAGNOSED WITH NEUROPATHY. PRIETO IS DRAINING CLEAR YELLOW URINE. FLUIDS AT BEDSIDE. BED IN LOW POSITION, BED RAILS UP X3. CALL LIGHT WITHIN REACH.
--- NOTE | 2020-07-28 23:14 | NUR ---
PT CALLING OUT FOR ASSISTANCE - PT REQUESTING BED WHYTE, 2 PERSON ASSIST ON BEDPAN. CALL LIGHT WITHIN REACH.
--- NOTE | 2020-07-29 00:45 | NUR ---
PT REORIENTED TO SURROUNDINGS. PT ASKING FOR HIS RED TELEPHONE, THOUGHT HE DROPPED IT OVER THE SIDE OF THE BED. CELL PHONE NOT IN BELONGINGS OR SEEN IN ROOM. UPDATED PT ON CURRENT TIME - PT REORIENTS EASILY. CALL LIGHT IN ROOM, PHONE ON OVERBED TABLE. BED IN LOW POSITION.
[2020-07-29 03:23] LABS: Hematocrit 36.6 % (37.0-53.0); Hemoglobin 11.8 g/dL (13.5-17.5); Mean Corpuscular HGB 28.1 pg (26.0-34.0); Mean Corpuscular HGB Conc 32.2 g/dL (31.5-36.5); Mean Corpuscular Volume 87 fL (80-100); Mean Platelet Volume 11.8 fL (9.1-12.4); Platelet Count 206 K/mm3 (150-400); RDW Coefficient Variation 15.7 % (11.7-14.2); RDW Standard Deviation 49.8 fL (35.1-46.3); White Blood Cell Count 13.61 K/mm3 (4.00-11.30)
[2020-07-29 03:39] LABS: Bun/Creatinine Ratio 15.1 (12.0-20.0); Calcium, Blood 8.4 mg/dL (8.5-10.1); Creatinine, Blood 2.18 mg/dL (0.60-1.20); Potassium, Blood 5.5 mmol/L (3.5-5.5)
--- NOTE | 2020-07-29 05:41 | NUR ---
SHIFT SUMMARY - NO ACUTE CHANGES THROUGHOUT THE NIGHT. PT HAS DENIED ANY CHEST PAIN OR DISCOMFORT. RIGHT GROIN SITE REMAINS UNCHANGED FROM THE BEGINNING OF THE SHIFT. PT WOKE UP WITH CONFUSION X1 DURING THE NIGHT - REORIENTED EASILY TO SURROUNDINGS. PT SLEPT FOR APPX 4 HOURS TONIGHT. CALL LIGHT AND FLUIDS WITHIN REACH. BED IN LOW POSITION.
--- NOTE | 2020-07-29 08:20 | NUR ---
ASSUMED CARE OF PT FROM KAREN RAO.
--- NOTE | 2020-07-29 09:17 | NUR ---
[place] of Care: Care assumed at 0700hr. Patient sleeping, easily roused to verbal stimuli, oriented x4. Denies pain, discomfort, SOB, or dyspnea, VSS. Arterial access site to rt groin, sheath removed yesterday. Rt groin site wnl, no s/s of bleeding or hematoma. Marrufo cath patent and intact, draining clear yellow urine. Peripheral IV's x2 patent and intact. Dr. Gonzalez in room to see patient this morning. Received instructions to get patient out of bed as tolerated, remove marrufo catheter and plan to keep patient in hospital for one more night before discharging to home. Call light in reach, makes needs known. Will continue to monitor.
--- NOTE | 2020-07-29 09:23 | NUR ---
PT UP TO CHAIR WITH RN, COARSE WIRE DRAWER, GAIT BELT AND WALKER. PT TOLERATED WELL, REQUIRED 2 PERSON ASSISTANCE. PRIETO CATHETER D/C'D PER .
--- NOTE | 2020-07-29 10:00 | NUR ---
PT REQUESTING TO GO BACK TO BED FROM THE CHAIR. BP NOTED TO BE RUNNING IN THE LOW 80S SYSTOLICALLY. PT DENIES FEELING DIZZY, LIGHT HEADED, NAUSEATED, OR ANY INCREASING PAIN IN HIS BACK, ABD OR GROIN SITE. I&Os REVIEWED. DR GABRIEL AND DR RODRIGUEZ NOTIFIED. DR GABRIEL STATES HE WILL COME SEE THE PT IN THE ICU. DR RODRIGUEZGAVE ORDER FOR IVF BOLUS.
--- NOTE | 2020-07-29 11:00 | NUR ---
DR GABRIEL AT BEDSIDE. FLUIDS AND EKG ORDERED. BP TAKEN MANUALLY 90/57. EKG GIVEN DIRECTED TO DR GABRIEL FOR INTERPRETATION. IVF BOLUS RUNNING, WILL CONTINUE TO MONITOR BP CLOSELY.
--- NOTE | 2020-07-29 12:07 | NUR ---
SECOND IVF BOLUS INFUSING, SBPs HAD BEEN RUNNING IN THE 80s AGAIN. DR GABRIEL NOTIFIED, ORDER RECEIVED.
--- NOTE | 2020-07-29 13:05 | NUR ---
BP READING HAVE IMPROVED, NOW 90S-100S SYSTOLIC. PT STATES THIS IS WITHIN HIS NORMAL BP RANGE AT HOME. DR GABRIEL NOTIFIED AND TRANSFER ORDER REQUESTED FOR PCU/MED FLOOR. DR GABRIEL WOULD LIKE PT TO STAY IN ICU FOR 2 MORE HOURS WITH CLOSE BP MONITORING THEN REPORT BACK TO HIM FOR TRANSFER DECISION. WILL CONTINUE TO MONITOR CLOSELY.
--- NOTE | 2020-07-29 18:28 | NUR ---
PT HAD LOW BLOOD PRESSURES TODAY. DR GABRIEL AND HOSPITALIST AWARE AND INVOLVED IN CARE. BLOOD PRESSURES HAVE IMPROVED THIS EVENING AFTER PT RECEIVED FLUID BOLUSES T/O THE DAY. R GROIN SITE HAS REMAINED SOFT AND NONTENDER WITH NO S/SX OF BLEEDING. PT DENIES BACK OR ABD PAIN. PER DR GABRIEL PT MAY DISCHARGE TO SNF D/T WEAKNESS. HE IS CURRENTLY A TWO PERSON ASSIST WITH GAIT BELT AND WALKER TO CHAIR OR COMMODE, PT IS UNABLE TO STAND FOR MORE THAN A FEW MOMENTS. PT IS RESTING IN BED AT THIS TIME, CALL LIGHT IN REACH, NO NEEDS IDENTIFIED. WILL GIVE REPORT TO ONCALVERTO LORA RN.
[2020-07-30 03:52] LABS: Hematocrit 34.5 % (37.0-53.0); Mean Corpuscular HGB 27.6 pg (26.0-34.0); Mean Corpuscular HGB Conc 31.9 g/dL (31.5-36.5); Mean Corpuscular Volume 87 fL (80-100); Mean Platelet Volume 12.5 fL (9.1-12.4); Platelet Count 189 K/mm3 (150-400); RDW Coefficient Variation 15.7 % (11.7-14.2); RDW Standard Deviation 49.7 fL (35.1-46.3); Red Blood Cell Count 3.98 M/mm3 (4.30-5.90); White Blood Cell Count 11.11 K/mm3 (4.00-11.30)
[2020-07-30 04:16] LABS: Bun/Creatinine Ratio 14.4 (12.0-20.0); Calcium, Blood 8.3 mg/dL (8.5-10.1); Creatinine, Blood 2.43 mg/dL (0.60-1.20); Potassium, Blood 5.1 mmol/L (3.5-5.5)
--- NOTE | 2020-07-30 05:36 | NUR ---
SHIFT SUMMARY PT RESTED WELL THROUGH NIGHT - ALERT AND ORIENTED, ABLE TO MAKE NEEDS KNOWN. SATS >90% ON ROOM AIR. TELE NSR/SINUS GENARO. BP WAS STABLE, BUT STARTED TO TREND DOWN DURING THE NIGHT. PM METOPROLOL WAS HELD IN THE EVENT THIS WOULD HAPPEN. PT IS ASYMPTOMATIC. IVF RUNNING AT 75ML/HR. NO PAIN MEDS GIVEN. R GROIN SITE IS C/D/I. VOIDING TO URINAL, NO BM. SKIN INTACT. NO PAIN. CALL LIGHT WITHIN REACH, BED IN LOWEST POSITION. WILL CONTINUE TO MONITOR.
--- NOTE | 2020-07-30 08:45 | NUR ---
ASSESSMENT- PT AWAKE, ALERT, COOPERATIVE. MOVES SLOWLY, STIFF EXTREMITIES. SKIN FRAGILE, W/D, COLOR PALE. C/O FEELING URINARY FREQUENCY. INCONTINENT URINE AND STOOL. BATH DONE, REPOSITIONED. LUNGS CLEAR. SBP LOW BUT STABLE. DENIES ANY DIZZINESS OR COMPLAINTS, NO SOB OR CP. NO N/V. RIGHT FEMORAL SITE DI. RIGHT FOREARM SL DI WITH NS AT 75 CC/HR. CONDOM CATH PLACED. SET UP FOR BREAKFAST.
--- NOTE | 2020-07-30 09:10 | NUR ---
DR. QUIROS HERE-UPDATED, ASSESSED PT. PLANS TO DECREASE DOSE OF METOPROLOL, MONITOR BP
--- NOTE | 2020-07-30 11:24 | NUR ---
SBP LOW, COLOR PALE, SKIN W/D, NO DIZZINESS OR LIGHTHEADEDNESS, DENIES COMPLAINTS. SINUS GENARO. NOTIFIED DR. GABRIEL-D/C LOPRESSOR, CONTINUE TO MONITOR NOW
--- NOTE | 2020-07-30 13:15 | NUR ---
PT UP TO CHAIR WITH PHYSICAL THERAPIST, TOLERATED WELL. MOVES WEAKLY, NEEDS WALKER. ATE LUNCH UP IN CHAIR. DENIES COMPLAINTS
--- NOTE | 2020-07-30 15:34 | NUR ---
DR. GABRIEL CALLED-UPDATED WITH IMPROVED BLOOD PRESSURE. PCU STATUS. PT TALKATIVE, DENIES PAIN. CONTINUE TO MONITOR. SINUS GENARO
--- NOTE | 2020-07-30 15:47 | NUR ---
ASSUMED CARE OF PATIENT. PT ALERT, LUYING IN BED. NO SIGNS OF DISTRESS NOTED. WILL CONTINUE TO MONITOR.
--- NOTE | 2020-07-30 16:46 | NUR ---
SHIFT SUMMARY ASSUMED CARE OF PT THIS AFTERNOON. PT A&Ox3; MOHEGAN. CALM AND COOPERATIVE WITH CARE. PT RESTING IN BED. 1 PERSON ASSIST UP TO CHAIR WITH WALKER AND GAITBELT. PT DENIES PAIN, CHEST PAIN, SOB, NAUSEA AND DIZZINESS. PT HYPOTENSIVE THIS AM, VSS THIS AFTERNOON. NO OTHER ACUTE CHANGES NOTED. WILL CONTINUE TO MONITOR UNTIL REPORT GIVEN TO ONCOMING RN.
--- NOTE | 2020-07-31 00:19 | NUR ---
DUE TO MEDITECH DOWNTIME - SEE CRITICAL CARE TRIFISIDRO
[2020-07-31 05:18] LABS: Hematocrit 35.4 % (37.0-53.0); Hemoglobin 11.1 g/dL (13.5-17.5); Mean Corpuscular HGB 27.4 pg (26.0-34.0); Mean Corpuscular HGB Conc 31.4 g/dL (31.5-36.5); Mean Corpuscular Volume 87 fL (80-100); Mean Platelet Volume 12.5 fL (9.1-12.4); Platelet Count 201 K/mm3 (150-400); RDW Coefficient Variation 15.8 % (11.7-14.2); Red Blood Cell Count 4.05 M/mm3 (4.30-5.90); White Blood Cell Count 9.96 K/mm3 (4.00-11.30)
[2020-07-31 05:34] LABS: Albumin, Blood 2.5 g/dL (3.4-5.0); Anion Gap 6 mmol/L (6-16); Blood Urea Nitrogen 34 mg/dL (8-24); Bun/Creatinine Ratio 13.9 (12.0-20.0); CO2, Blood 22 mmol/L (21-32); Chloride, Blood 112 mmol/L (98-108); Creatinine, Blood 2.44 mg/dL (0.60-1.20); Glomerular Filtration Rate 27 (60-); Glucose, Blood 90 mg/dL (70-99); Phosphorus, Blood 2.6 mg/dL (2.5-4.9); Potassium, Blood 5.4 mmol/L (3.5-5.5); Sodium, Blood 140 mmol/L (136-145)
--- NOTE | 2020-07-31 05:47 | NUR ---
SHIFT SUMMARY PT RESTED WELL THROUGH THE NIGHT. ALERT AND ORIENTED - ABLE TO MAKE NEEDS KNOWN. SATS >90% ON ROOM AIR. TELE SINUS GENARO/NSR. R GROIN SITE C/D/I. CONDOM CATH IN PLACE - DRAINING TO GRAVITY, ADEQUATE UOP. NO BM. TURNS IN BED WELL. NO C/O PAIN. BP STABLE THROUGHOUT NIGHT - NO DROPS IN BP. CALL LIGHT WITHIN REACH, BED IN LOWEST POSITION. WILL CONTINUE TO MONITOR.
--- NOTE | 2020-07-31 07:15 | NUR ---
Assumed care of pt at 0700 from Rosalva RN. Pt A&O x 4. Answers questions. Follows commands. Verbalizes needs. Pleasant and cooperative with care. Pt SR per monitor. BP stable. Lungs clear t/o. Pt on room air. Groin site free of hematoma or drainage. Pt has condom cath in place for urine incontinence. Pt incontinent of stool. Assisted to commode with 1 person max assist. Pt required help with beau care. Bed in lowest position. Call light in reach. Pt denies need at this time.
--- NOTE | 2020-07-31 09:00 | NUR ---
PLAN OF CARE DISCUSSED WITH DR RODRIGUEZ Provider states pt will likely discharge home today. Discussed that cardiology has signed off on patient's plan of care.
[2020-07-31] MEDS ORDERED: ASPI81CH PO (14:06)
[2020-07-31] MEDS ORDERED: TICA90TA PO (14:07)
[2020-07-31] MEDS ORDERED: NITR.4SL SL (14:10)
[2020-07-31] MEDS ORDERED: ROSU5 PO (14:19)
--- NOTE | 2020-07-31 17:02 | NUR ---
Pt discharged from unit at 1545 with his son. Discharge information given to patient and son. Discussed new medications and to look out for bleeding, considering that pt has history of GI bleed. Stent card and brilinta coupon given to patient. Discussed groin site instructions. Medication orders faxed to [facility] in [place]. Follow up appointment made with cardiology.
== END 2020-07-31 15:45 | disposition home or self-care (01) | DRG 247 ==
LOC: ER 00:22 → ICUW 00:54
PROVIDERS: Emergency Medicine; Internal Medicine; ADMIT Internal Medicine
PROC: 027034Z Dilation of Coronary Artery, One Artery with Drug-eluting Intraluminal Device, Percutaneous Approach (ICD-10-PCS; principal; 2020-07-28)
PROC: 4A023N7 Measurement of Cardiac Sampling and Pressure, Left Heart, Percutaneous Approach (ICD-10-PCS; 2020-07-28)
PROC: B2111ZZ Fluoroscopy of Multiple Coronary Arteries using Low Osmolar Contrast (ICD-10-PCS; 2020-07-28)
PROC: B240ZZ3 Ultrasonography of Single Coronary Artery, Intravascular (ICD-10-PCS; 2020-07-28)
DX: I21.02 ST elevation (STEMI) myocardial infarction involving left anterior descending coronary artery (principal); N18.30 Chronic kidney disease, stage 3 unspecified; G47.33 Obstructive sleep apnea (adult) (pediatric); G62.9 Polyneuropathy, unspecified; Z86.73 Personal history of transient ischemic attack (TIA), and cerebral infarction without residual deficits; I95.9 Hypotension, unspecified; Z79.82 Long term (current) use of aspirin; R33.9 Retention of urine, unspecified; R33.8 Other retention of urine; L89.152 Pressure ulcer of sacral region, stage 2
CPT/HCPCS: 36415; 51702; 76937; 80047; 80048; 80053; 80069; 81001; 82947; 83735; 84484; 85014; 85018; 85027; 85347; 85730; 92978; 93005; 93010; 93458; 97110; 97116; 97162; 99152; 99153; 99285-25; A9270; C1725; C1753; C1769; C1874; C1887; C1894; C8929; C9606; G0278; J0171; J0461; J1644; J1650; J2250; J3010; J3475; J7030; J7040; J7050; J7120; Q9957; Q9967

== ENCOUNTER 2021-06-25 06:24 | Emergency (ER) | payer OTHER ==
[~2021-06-25] VITALS: Ht 180.3 cm; Wt 72.6 kg
[~2021-06-25 06:24] MED LIST changes: +ASPI81CH PO; +NITR.4SL SL; +ROSU5 PO; +TICA90TA PO
[2021-06-25 07:07] LABS: BASOPHILS ABSOLUTE AUTO 0.11 K/mm3 (0.00-0.23); BASOPHILS PERCENT AUTO 2 % (0-2); EOSINOPHILS ABSOLUTE AUTO 0.42 K/mm3 (0.00-0.68); EOSINOPHILS PERCENT AUTO 6 % (0-6); Hematocrit 40.1 % (37.0-53.0); Hemoglobin 12.1 g/dL (13.5-17.5); IMMATURE GRAN ABSOLUTE AUTO 0.01 K/mm3 (0.00-0.10); IMMATURE GRAN PERCENT AUTO 0 % (0-1); LYMPHOCYTES ABSOLUTE AUTO 1.56 K/mm3 (0.84-5.20); LYMPHOCYTES PERCENT AUTO 22 % (21-46); MONOCYTES ABSOLUTE AUTO 0.75 K/mm3 (0.16-1.47); MONOCYTES PERCENT AUTO 10 % (4-13); Mean Corpuscular HGB 29.2 pg (26.0-34.0); Mean Corpuscular HGB Conc 30.2 g/dL (31.5-36.5); Mean Corpuscular Volume 97 fL (80-100); Mean Platelet Volume 11.6 fL (9.1-12.4); NEUTROPHILS ABSOLUTE AUTO 4.38 K/mm3 (1.96-9.15); NEUTROPHILS PERCENT AUTO 61 % (41-73); Platelet Count 189 K/mm3 (150-400); RDW Coefficient Variation 15.5 % (11.7-14.2); Red Blood Cell Count 4.14 M/mm3 (4.30-5.90); White Blood Cell Count 7.23 K/mm3 (4.00-11.30)
[2021-06-25 07:25] LABS: Albumin, Blood 3.5 g/dL (3.4-5.0); Bilirubin, Total 0.3 mg/dL (0.1-1.0); Creatinine, Blood 2.22 mg/dL (0.60-1.20); Free Thyroxine 0.96 ng/dL (0.70-1.60); Globulin, Blood 3.5 g/dL (2.2-4.0); Magnesium, Blood 2.3 mg/dL (1.6-2.4); Potassium, Blood 5.6 mmol/L (3.5-5.5); Thyroid Stimulating Hormone 5.18 uIU/mL (0.360-4.800)
[2021-06-25 09:26] LABS: Source, Urine Voided
[2021-06-25 09:47] LABS: Bilirubin, Urine Neg (Neg); Blood, Urine 1+ (Neg); Glucose Qualitative, Urine Neg (Neg); Ketones, Urine Neg (Neg); Leukocyte Esterase, Urine Neg (Neg); Nitrite, Urine Neg (Neg); Protein, Urine 2+ (Neg); Specific Gravity, Urine 1.015 (1.003-1.022); Urobilinogen, Urine NORM (Normal)
[2021-06-25 10:06] LABS: Appearance, Urine Clear (Clear); Color, Urine Yellow (P-Yellow)
[2021-06-25 10:13] LABS: Granular Casts 0-2 /lpf (0)
[2021-06-25 10:14] LABS: Bacteria Mod /hpf; Red Blood Cells, Urine 0-2 /hpf (0-2); Squamous Epithelial Cells Rare /hpf (Few); White Blood Cells, Urine 0-2 /hpf (0-5)
== END 2021-06-25 14:11 | disposition home or self-care (01) ==
LOC: ER 06:24
PROVIDERS: Emergency Medicine
DX: R53.1 Weakness (principal); N18.30 Chronic kidney disease, stage 3 unspecified; K21.9 Gastro-esophageal reflux disease without esophagitis; G47.33 Obstructive sleep apnea (adult) (pediatric); E78.5 Hyperlipidemia, unspecified; G62.9 Polyneuropathy, unspecified; E21.3 Hyperparathyroidism, unspecified; Z79.82 Long term (current) use of aspirin; Z79.899 Other long term (current) drug therapy; Z88.6 Allergy status to analgesic agent; Z88.8 Allergy status to other drugs, medicaments and biological substances; Z88.1 Allergy status to other antibiotic agents
CPT/HCPCS: 36415; 51701; 51798; 71045; 80053; 81001; 82947; 83735; 84439; 84443; 85025; 87086; 93005; 93010; 99284-25; A9270; J7030